=== PATIENT | male | born 1965 | race American Indian/Alaskan Native ===

== ENCOUNTER 2017-04-01 20:12 | Inpatient (IN) | payer MEDICAID ==
--- NOTE | 2017-04-01 21:07 | ED PDOC ---
HPI: Psych/Substance Abuse Time Seen by Provider: 04/01/17 20:50 Chief Complaint (Nursing): Psychiatric Evaluation Chief Complaint (Provider): Depressed History Per: Patient History/Exam Limitations: no limitations Current Symptoms Are (Timing): Still Present Additional Complaint(s): Pt. is suicidal, not homicidal. Has been taking more ibuprofren (7x a day for more then a week) and augmentin (3x a day for 3 days). Trying to hurt self by it. No cuts to self. Denies any abd pain, weakness, chest pain, dyspnea, headaches, dizziness. No back pain. Past Medical History Reviewed: Nursing Documentation, Vital Signs Vital Signs: Last Vital Signs Temp 98.7 F 04/01/17 20:44 Pulse 64 04/01/17 20:44 Resp 18 04/01/17 20:44 BP 117/75 04/01/17 20:44 Pulse Ox 95 04/01/17 20:44 - Medical History PMH: Bipolar Disorder, Depression, Hypercholesterolemia, Schizophrenia Denies: Diabetes (Patient denied), Hepatitis (Patient denied), HIV (Patient denied), HTN (Patient denied), Chronic Kidney Disease, Seizures (Patient denied) , Sexually Transmitted Disease (Patient denied) - Surgical History Surgical History: No Surg Hx - Family History Family History: States: Unknown Family Hx - Social History Alcohol: None Drugs: Denies - Immunization History Hx Tetanus Toxoid Vaccination: No Hx Influenza Vaccination: No Hx Pneumococcal Vaccination: No - Home Medications Home Medications: Ambulatory Orders Medication Instructions Recorded Benztropine [Cogentin] 1 mg PO HS #30 tab 11/22/16 OLANZapine [Zyprexa] 20 mg PO HS #60 tab 11/22/16 Sertraline [Zoloft] 50 mg PO DAILY #30 tab 11/22/16 traZODone [Desyrel] 50 mg PO HS 11/25/16 Amoxicillin/Clavulanate [Augmentin 1 tab PO TID 04/01/17 500 MG-125 MG Tab] Ibuprofen [Motrin Tab] 600 mg PO Q8 PRN 04/01/17 - Allergies Allergies/Adverse Reactions: Allergies Allergy/AdvReac Type Severity Reaction Status Date / Time No Known Allergies Allergy Verified 11/25/16 13:41 Review of Systems ROS Statement: Except As Marked, All Systems Reviewed And Found Negative Psych: Positive for: Depression, Suicidal ideation Physical Exam - Reviewed Nursing Documentation Reviewed: Yes Vital Signs Reviewed: Yes - Physical Exam Appears: Positive for: Non-toxic, No Acute Distress Head Exam: Positive for: ATRAUMATIC, NORMAL INSPECTION, NORMOCEPHALIC Skin: Positive for: Normal Color, Warm, DRY Eye Exam: Positive for: EOMI, Normal appearance, PERRL ENT: Positive for: Normal ENT Inspection Neck: Positive for: Normal, Painless ROM Cardiovascular/Chest: Positive for: Regular Rate, Rhythm Respiratory: Positive for: CNT, Normal Breath Sounds Gastrointestinal/Abdominal: Positive for: Normal Exam, Bowel Sounds, Soft. Negative for: Tenderness Back: Positive for: Normal Inspection. Negative for: L CVA Tenderness, R CVA Tenderness Extremity: Positive for: Normal ROM. Negative for: Tenderness, Pedal Edema Neurologic/Psych: Positive for: Alert, Oriented - Laboratory Results Result Diagrams: 04/01/17 21:10 04/01/17 21:10 Interpretation Of Abn Labs: no acute - ECG O2 Sat by Pulse Oximetry: 95 Pulse Ox Interpretation: Normal - Progress ED Course And Treament: 2133: Stable. AAOx3. Spoke with Poison Control. Made aware of presentation. Wants routine blood, if neg, then cleared. 2235: Stable. AAOx3. Medically stable. Crisis saw pt. and will admit. Disposition - Clinical Impression Clinical Impression: Depression - Patient ED Disposition Is Patient to be Admitted: Yes Counseled Patient/Family Regarding: Studies Performed, Diagnosis - Disposition Disposition Time: 22:36 Condition: STABLE - POA Present On Arrival: None
[2017-04-01 21:14] LABS: BASO # 0.1 K/uL (0.0-0.2); BASO % 0.8 % (0.0-2.0); EOS # 0.3 K/uL (0.0-0.7); EOS % 2.8 % (0.0-4.0); HEMOGLOBIN 13.9 g/dL (12.0-18.0); LYMPH # 4.5 K/uL (1.0-4.3); LYMPH % 44.1 % (20.0-40.0); MEAN CELL VOLUME 85.2 fl (80.0-94.0); MEAN PLATELET VOLUME 7.5 fl (7.2-11.7); MONO # 0.7 K/uL (0.0-0.8); MONO % 6.5 % (0.0-10.0); NEUT # 4.6 K/uL (1.8-7.0); NEUT % 45.8 % (50.0-75.0); NRBC % 0.2 % (0.0-0.0); RBC 4.81 Mil/uL (4.40-5.90); RED CELL DISTRIBUTION WIDTH 13.3 % (11.5-14.5); WHITE BLOOD COUNT 10.1 K/uL (4.8-10.8)
[2017-04-01 21:23] LABS: ALB/GLOB RATIO 1.1 (1.0-2.1); ALBUMIN 4.5 g/dL (3.5-5.0); ALT/SGPT 51 U/L (21-72); AST/SGOT 27 U/L (17-59); BLOOD UREA NITROGEN 13 mg/dl (9-20); CALCIUM 9.7 mg/dL (8.4-10.2); GFR AFRICAN-AMERICAN > 60; GFR NON-AFRICAN AMERICAN > 60
[2017-04-01 22:12] LABS: SALICYLATE < 1.0 mg/dl
[2017-04-01 22:13] LABS: ACETAMINOPHEN < 10.0 ug/ml (10.0-30.0)
[2017-04-01 22:37] LABS: BARBITURATES, UR NEGATIVE (NEGATIVE); BENZODIAZEPINES, UR NEGATIVE (NEGATIVE); OPIATES, UR NEGATIVE (NEGATIVE); PHENCYCLIDINE, UR NEGATIVE (NEGATIVE)
[2017-04-02 00:43] VITALS: O2SAT 100
[2017-04-02] MEDS ORDERED: DiphenhydrAMINE 50 mg/ml Inj IM PRN (01:26)
[2017-04-02] MEDS ORDERED: Alum-Mag Hydrox-Simethicone Susp (30 mL) PO PRN (01:26)
[2017-04-02] MEDS ORDERED: Magnesium Hydroxide Susp 30 ml UD PO PRN (01:26)
[2017-04-02 08:39] LABS: T4 7.98 ug/dl (5.5-11.0)
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
--- NOTE | 2017-04-02 11:08 | CARD ---
APPROVED REPORT EKG Measurement Heart [id number] <Conclusion> Normal sinus rhythm with sinus arrhythmia Normal ECG
--- NOTE | 2017-04-03 09:55 | PCM.PYCHPN ---
Psychiatric Progress Note - Psychiatric Progress Note Patient seen today, length of contact: Patient evaluated, case discussed with team, chart reviewed, 35 min Patient Chief Complaint: "I'm feeling a little better" Problems Identified/Issues Discussed: Patient reports that his mood is starting to improve. He last heard AH last night. He denies current ideation to harm himself. He is calm and cooperative with staff. He denies adverse effects to medications or medical complaints. Medication Change: No Medical Record Reviewed: Yes Consults ordered or reviewed: Medicine consult Mental Status Examination - Cognitive Function Orientation: Person, Place, Situation, Time Memory: Intact Attention: WNL Concentration: WNL Association: [facility] Fund of Knowledge: [facility] Decription of patient's judgement and insights: Fair I/J - Mood Mood: Depressed - Affect Affect: Constricted - Speech Speech: Appropriate - Formal Thought Process Formal Thought Process: Hallucinations (Denies currently, but reports recent AH) Psychotic Thoughts and Behaviors: No current AH, heard AH last night - Suicidal Ideation Suicidal Ideation: No - Homicidal Ideation Homicidal Ideation: No Goal/Treatment Plan - Goal/Treatment Plan Need for Continued Stay: Remain at risks for inpatient hospitalization, Severe depression anxiety, Discharge may exacerbated symptoms Progress Toward Problem(s) and Goals/Treatment Plan: 52 yo male w/ h/o schizoaffective disorder presented with complaints of worsening depression, intermittent SI and AH; patient is starting to improve clinically. -Medicine consult -Continue Benztropine 1 mg PO HS -Continue Zoloft 200 mg PO Daily -Continue Zyprexa 20 mg PO HS -Hold Trazodone as the patient stopped talking it and reports that it causes him to be over sedated -Individual and group therapy -No 1:1 indicated at this time Estimated Date of D/C: 04/05/17
--- NOTE | 2017-04-03 10:57 | CP.PCM.CON ---
History of Present Illness - History of Present Illness History of Present Illness: Reason for consult per hospital protocol History of present illness This is a 52-year-old male with past medical history of schizoaffective disorder currently admitted to inpatient psychiatry for worsening depression, intermittent suicidal ideation and auditory hallucinations. He currently has no suicidal ideation at the time of 30. He has no other complaints, hemodynamically stable, no acute distress. Review of systems: Per HPI, all other systems reviewed and negative by me Past medical history: Schizoaffective disorder Past surgical history: Wrist surgery Family history: Denies Social history: Denies tobacco, alcohol, IV drug use Medications as below No known drug allergies Vitals reviewed Vital signs as documented. Gen: WDWN, cooperative, alert HEENT: NCAT, PERRL, EOMI, no erythema, exudates, gross hearing intact, no lesions Neck: Soft, supple, no lymphadenopathy, no JVD Heart: +S1S2, RRR, No MRG Lung: CTAB, No WRR Abd: soft, NT, ND, BSx4, no HSM, no masses Ext: warm, well perfused, pedal pulses intact Neuro: AAOx3, Strength equal bilaterally UE/LE Skin: Warm, Dry, no rash Psych: Normal mood, affect with appropriate range Labs 04/01/17 21:10 04/01/17 21:10 04/02/17 04/02/17 04/02/17 07:30 07:30 07:30 WBC RBC Hgb Hct MCV MCH MCHC RDW Plt Count MPV Neut % (Auto) Lymph % (Auto) [place] % (Auto) Eos % (Auto) Baso % (Auto) Neut # Lymph # [place] # Eos # Baso # Sodium Potassium Chloride Carbon Dioxide Anion Gap BUN Creatinine Est GFR ( Amer) Est GFR (Non-Af Amer) Random Glucose Hemoglobin A1c 5.8 Calcium Total Bilirubin AST ALT Alkaline Phosphatase Troponin I Total Protein Albumin Globulin Albumin/Globulin Ratio Triglycerides 107 D Cholesterol 228 H LDL Cholesterol Direct 155 H HDL Cholesterol 29 L Thyroxine (T4) 7.98 TSH 3rd Generation 1.70 Salicylates Urine Opiates Screen Urine Methadone Screen Acetaminophen Ur Barbiturates Screen Ur Phencyclidine Scrn Ur Amphetamines Screen U Benzodiazepines Scrn U Oth Cocaine Metabols U Cannabinoids Screen RPR Nonreactive 04/01/17 04/01/17 04/01/17 22:00 21:10 21:10 WBC 10.1 RBC 4.81 Hgb 13.9 Hct 40.9 MCV 85.2 MCH 29.0 MCHC 34.0 RDW 13.3 Plt Count 332 MPV 7.5 Neut % (Auto) 45.8 L Lymph % (Auto) 44.1 H [place] % (Auto) 6.5 Eos % (Auto) 2.8 Baso % (Auto) 0.8 Neut # 4.6 Lymph # 4.5 H [place] # 0.7 Eos # 0.3 Baso # 0.1 Sodium Potassium Chloride Carbon Dioxide Anion Gap BUN Creatinine Est GFR ( Amer) Est GFR (Non-Af Amer) Random Glucose Hemoglobin A1c Calcium Total Bilirubin AST ALT Alkaline Phosphatase Troponin I Total Protein Albumin Globulin Albumin/Globulin Ratio Triglycerides Cholesterol LDL Cholesterol Direct HDL Cholesterol Thyroxine (T4) TSH 3rd Generation Salicylates < 1.0 Urine Opiates Screen Negative Urine Methadone Screen Negative Acetaminophen < 10.0 L Ur Barbiturates Screen Negative Ur Phencyclidine Scrn Negative Ur Amphetamines Screen Negative U Benzodiazepines Scrn Negative U Oth Cocaine Metabols Negative U Cannabinoids Screen Negative RPR 04/01/17 21:10 WBC RBC Hgb Hct MCV MCH MCHC RDW Plt Count MPV Neut % (Auto) Lymph % (Auto) [place] % (Auto) Eos % (Auto) Baso % (Auto) Neut # Lymph # [place] # Eos # Baso # Sodium 141 Potassium 4.0 Chloride 108 H Carbon Dioxide 23 Anion Gap 14 BUN 13 Creatinine 1.0 Est GFR ( Amer) > 60 Est GFR (Non-Af Amer) > 60 Random Glucose 94 Hemoglobin A1c Calcium 9.7 Total Bilirubin 0.4 AST 27 ALT 51 Alkaline Phosphatase 71 Troponin I < 0.0120 Total Protein 8.5 H Albumin 4.5 Globulin 4.0 H Albumin/Globulin Ratio 1.1 Triglycerides Cholesterol LDL Cholesterol Direct HDL Cholesterol Thyroxine (T4) TSH 3rd Generation Salicylates Urine Opiates Screen Urine Methadone Screen Acetaminophen Ur Barbiturates Screen Ur Phencyclidine Scrn Ur Amphetamines Screen U Benzodiazepines Scrn U Oth Cocaine Metabols U Cannabinoids Screen RPR Assessment and plan 52-year-old male with past medical history of schizoaffective disorder currently admitted to inpatient psychiatry for worsening depression, intermittent suicidal ideation and auditory hallucinations. He currently has no suicidal ideation at the time of 30. He has no other complaints, hemodynamically stable, no acute distress. Schizoaffective disorder with worsening depression and suicidal ideation Management per psychiatry Past Patient History - Infectious Disease Hx of Infectious Diseases: None - Past Medical History & Family History Past Medical History?: Yes - Past Social History Alcohol: None Drugs: Denies - CARDIAC Hx Hypercholesterolemia: Yes Hx Hypertension: No (Patient denied) - PULMONARY Hx Tuberculosis: No - NEUROLOGICAL Hx Seizures: No (Patient denied) - HEENT Other/Comment: pt wears glasses - RENAL Hx Chronic Kidney Disease: No - ENDOCRINE/METABOLIC Hx Endocrine Disorders: No - HEMATOLOGICAL/ONCOLOGICAL Hx Human Immunodeficiency Virus (HIV): No (Patient denied) - INTEGUMENTARY Hx Dermatological Problems: No - MUSCULOSKELETAL/RHEUMATOLOGICAL Hx Musculoskeletal Disorders: No - GASTROINTESTINAL Hx Gastrointestinal Disorders: No - GENITOURINARY/GYNECOLOGICAL Hx Sexually Transmitted Disorders: No (Patient denied) - PSYCHIATRIC Hx Anxiety: Yes Hx Depression: Yes Hx Substance Use: No - SURGICAL HISTORY Hx Surgeries: Yes Other/Comment: Arm surgery-left forearm - ANESTHESIA Hx Anesthesia: Yes Hx Anesthesia Reactions: No Meds Allergies/Adverse Reactions: Allergies Allergy/AdvReac Type Severity Reaction Status Date / Time No Known Allergies Allergy Verified 11/25/16 13:41 - Medications Medications: Current Medications Acetaminophen (Tylenol 325mg Tab) 650 mg PO Q4 PRN PRN Reason: for pain 4-7 Al Hydrox/Mg Hydrox/Simethicone (Maalox Plus 30 Ml) 30 ml PO Q4 PRN PRN Reason: Dyspepsia Benztropine Mesylate (Cogentin) 1 mg PO HS GILLIAN Last Admin: 04/02/17 21:40 Dose: 1 mg Diphenhydramine HCl (Benadryl) 50 mg IM Q6 PRN PRN Reason: Extrapyramidal S/S Unable PO Diphenhydramine HCl (Benadryl) 50 mg PO Q6 PRN PRN Reason: Extrapyramidal Symptoms Haloperidol (Haldol) 5 mg PO Q4 PRN PRN Reason: Agitation Haloperidol Lactate (Haldol) 5 mg IM Q4 PRN PRN Reason: Agitation, Unable to Take PO Ibuprofen (Motrin Tab) 600 mg PO Q8 PRN PRN Reason: Pain, moderate (4-7) Last Admin: 04/03/17 08:53 Dose: 600 mg Lorazepam (Ativan) 2 mg IM Q4 PRN PRN Reason: Anxiety/Agitation,Unable PO Lorazepam (Ativan) 2 mg PO Q4 PRN PRN Reason: Anxiety/Agitation Magnesium Hydroxide (Milk Of Magnesia) 30 ml PO HS PRN PRN Reason: Constipation Olanzapine (Zyprexa) 20 mg PO HS [facility] Last Admin: 04/02/17 21:40 Dose: 20 mg Sertraline HCl (Zoloft) 200 mg PO DAILY [facility] Last Admin: 04/03/17 08:52 Dose: 200 mg Results - Vital Signs Recent Vital Signs: Last Vital Signs Temp 97.3 F L 04/03/17 06:00 Pulse 59 L 04/03/17 06:00 Resp 20 04/03/17 06:00 BP 111/60 04/03/17 06:00 Pulse Ox 100 04/02/17 00:15 - Labs Result Diagrams: 04/01/17 21:10 04/01/17 21:10 Labs: Laboratory Results - last 24 hr 04/02/17 07:30 RPR Nonreactive
--- NOTE | 2017-04-04 12:05 | PCM.PYCHPN ---
Psychiatric Progress Note - Psychiatric Progress Note Patient seen today, length of contact: Patient evaluated, case discussed with team, chart reviewed, 35 min Patient Chief Complaint: "I'm feeling a little better" Problems Identified/Issues Discussed: Patient reports that his mood is improving. He last heard AH last night, but states that they are not as distressing. He denies current ideation to harm himself. He is calm and cooperative with staff. He denies adverse effects to medications. We discussed how stress in his life causes his mood to worsen, such as arguments with his girlfriend or his pending move. Medication Change: No Medical Record Reviewed: Yes Mental Status Examination - Cognitive Function Orientation: Person, Place, Situation, Time Memory: Intact Attention: WNL Concentration: WNL Association: WNL Fund of Knowledge: [facility] Decription of patient's judgement and insights: Fair I/J - Mood Mood: Depressed - Affect Affect: Constricted - Speech Speech: Appropriate - Formal Thought Process Formal Thought Process: Hallucinations (Denies currently, but reports recent AH) Psychotic Thoughts and Behaviors: No current AH, heard AH last night - Suicidal Ideation Suicidal Ideation: No - Homicidal Ideation Homicidal Ideation: No Goal/Treatment Plan - Goal/Treatment Plan Need for Continued Stay: Remain at risks for inpatient hospitalization, Severe depression anxiety, Discharge may exacerbated symptoms Progress Toward Problem(s) and Goals/Treatment Plan: 52 yo male w/ h/o schizoaffective disorder presented with complaints of worsening depression, intermittent SI and AH; patient is starting to improve clinically, no longer reporting suicidal ideation. -Medicine consult -Continue Benztropine 1 mg PO HS -Continue Zoloft 200 mg PO Daily -Continue Zyprexa 20 mg PO HS -Hold Trazodone as the patient stopped talking it and reports that it causes him to be over sedated -Individual and group therapy -No 1:1 indicated at this time Estimated Date of D/C: 04/06/17
--- NOTE | 2017-04-05 08:46 | PCM.PYCHPN ---
Psychiatric Progress Note - Psychiatric Progress Note Patient seen today, length of contact: Patient evaluated, case discussed with team, chart reviewed, 35 min Patient Chief Complaint: "I'm feeling better" Problems Identified/Issues Discussed: Patient reports that his mood continues to improve. No significant events overnight. NO current AH. He denies current ideation to harm himself. He is calm and cooperative with staff. He denies adverse effects to medications. Medication Change: No Medical Record Reviewed: Yes Mental Status Examination - Cognitive Function Orientation: Person, Place, Situation, Time Memory: Intact Attention: WNL Concentration: WNL Association: WNL Fund of Knowledge: [facility] Decription of patient's judgement and insights: Fair I/J - Mood Mood: Anxious - Affect Affect: Constricted - Speech Speech: Appropriate - Formal Thought Process Formal Thought Process: No Impairment Psychotic Thoughts and Behaviors: No current AH - Suicidal Ideation Suicidal Ideation: No - Homicidal Ideation Homicidal Ideation: No Goal/Treatment Plan - Goal/Treatment Plan Need for Continued Stay: Remain at risks for inpatient hospitalization, Severe depression anxiety, Discharge may exacerbated symptoms Progress Toward Problem(s) and Goals/Treatment Plan: 52 yo male w/ h/o schizoaffective disorder presented with complaints of worsening depression, intermittent SI and AH; patient is improving clinically, no longer reporting suicidal ideation. -Medicine consult -Continue Benztropine 1 mg PO HS -Continue Zoloft 200 mg PO Daily -Continue Zyprexa 20 mg PO HS -Hold Trazodone as the patient stopped talking it and reports that it causes him to be over sedated -Individual and group therapy -No 1:1 indicated at this time -Likely discharge to home tomorrow if his symptoms continue to improve Estimated Date of D/C: 04/06/17
[2017-04-06 05:56] VITALS: BP 126/78; PULSE 66; RESP 18; TEMP 97
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
== END 2017-04-06 13:02 | disposition home or self-care (01) | DRG 430 ==
LOC: H.ER 20:12 → H.ERHOLD 22:37 → H.STEP 04-02 01:15
PROVIDERS: ADMIT Psychiatry & Neurology Psychiatry; ATTEND Psychiatry & Neurology Psychiatry
PROC: GZ3ZZZZ Medication Management (ICD-10-PCS; principal; 2017-04-01)
PROC: GZHZZZZ Group Psychotherapy (ICD-10-PCS; 2017-04-01)
PROC: GZ56ZZZ Individual Psychotherapy, Supportive (ICD-10-PCS; 2017-04-01)
DX: F25.0 Schizoaffective disorder, bipolar type (principal); R45.851 Suicidal ideations; F32.9 Major depressive disorder, single episode, unspecified; E78.00 Pure hypercholesterolemia, unspecified; Z91.5 Personal history of self-harm; Z79.899 Other long term (current) drug therapy

== ENCOUNTER 2017-04-07 08:01 | Emergency (ER) | payer MEDICAID ==
[2017-04-07 08:14] VITALS: BP 122/69; PULSE 92; RESP 16; TEMP 98.1; O2SAT 95
[2017-04-07 08:15] VITALS: BMI 30.4
--- NOTE | 2017-04-07 08:32 | ED PDOC ---
HPI: Skin/Bite Injury Time Seen by Provider: 04/07/17 08:17 Chief Complaint (Nursing): Abnormal Skin Integrity Chief Complaint (Provider): rash History Per: Patient History/Exam Limitations: no limitations Onset/Duration Of Symptoms: Intermittent Episodes, Other (x 1.5 month) Additional Complaint(s): Maikol Medina is a 52 year old male, with no previous medical history, who presents to the ED for the evaluation of a rash at the perioral area intermittently ongoing for a month and half. He reports feeling tingling to the area then forms vesicles. Denies any fevers. Past Medical History Reviewed: Historical Data, Nursing Documentation, Vital Signs Vital Signs: Last Vital Signs Temp 98.1 F 04/07/17 08:14 Pulse 92 H 04/07/17 08:14 Resp 16 04/07/17 08:14 BP 122/69 04/07/17 08:14 Pulse Ox 95 04/07/17 08:35 - Medical History PMH: Anxiety, Bipolar Disorder, Depression, Hypercholesterolemia, Schizophrenia Denies: Diabetes (Patient denied), Hepatitis (Patient denied), HIV (Patient denied), HTN (Patient denied), Chronic Kidney Disease, Seizures (Patient denied) , Sexually Transmitted Disease (Patient denied) - Family History Family History: States: Unknown Family Hx - Immunization History Hx Tetanus Toxoid Vaccination: No Hx Influenza Vaccination: No Hx Pneumococcal Vaccination: No - Home Medications Home Medications: Ambulatory Orders Medication Instructions Recorded Benztropine [Cogentin] 1 mg PO HS #30 tab 11/22/16 Ibuprofen [Motrin Tab] 600 mg PO Q8 PRN 04/01/17 Sertraline [Zoloft] 200 mg PO DAILY #60 tab 04/05/17 Benztropine [Cogentin] 1 mg PO HS #30 tab 04/06/17 Olanzapine [Zyprexa] 20 mg PO DAILY #30 tablet 04/06/17 Valacyclovir HCl [Valtrex] 1 gm PO Q8 #30 tablet 04/07/17 - Allergies Allergies/Adverse Reactions: Allergies Allergy/AdvReac Type Severity Reaction Status Date / Time No Known Allergies Allergy Verified 11/25/16 13:41 Review of Systems ROS Statement: Except As Marked, All Systems Reviewed And Found Negative Constitutional: Negative for: Fever ENT: Positive for: Other (perioal rash ) Physical Exam - Reviewed Nursing Documentation Reviewed: Yes Vital Signs Reviewed: Yes - Physical Exam Appears: Positive for: Well, Non-toxic, No Acute Distress Skin: Positive for: Normal Color, Warm, Dry. Negative for: Rash Eye Exam: Positive for: Normal appearance ENT: Positive for: Other (right lower lip area with crusted lesion. no drainage noted ) Cardiovascular/Chest: Positive for: Regular Rate, Rhythm Respiratory: Positive for: CNT, Normal Breath Sounds Neurologic/Psych: Positive for: Alert, Oriented - ECG O2 Sat by Pulse Oximetry: 95 (RA) Pulse Ox Interpretation: Normal Medical Decision Making Medical Decision Making: Scribe Attestation: Documented by Evy Rodriguez, acting as a scribe for Chaz Lindsay MD. Provider Scribe Attestation: All medical record entries made by the Scribe were at my direction and personally dictated by me. I have reviewed the chart and agree that the record accurately reflects my personal performance of the history, physical exam, medical decision making, and the department course for this patient. I have also personally directed, reviewed, and agree with the discharge instructions and disposition. Disposition - Clinical Impression Clinical Impression: Recurrent cold sores - Disposition Referrals: [facility] [Outside] Disposition Time: 08:42 Condition: FAIR Prescriptions: Valacyclovir HCl [Valtrex] 1 gm PO Q8 #30 tablet Instructions: Oral Herpes Simplex Virus Infections (ED) Forms: [facility] (Greenlandic)
== END 2017-04-07 09:12 | disposition home or self-care (01) ==
LOC: H.ER 08:01
DX: B00.9 Herpesviral infection, unspecified (principal)